=== PATIENT | female | born 1985 | race Caucasian/White ===

== ENCOUNTER 2020-12-13 06:22 | Emergency (ER) | payer OTHER ==
[~2020-12-13] VITALS: Ht 162.6 cm; Wt 65.8 kg
[~2020-12-13 06:22] MED LIST: ACEASPCAF PO; DIAZ5 PO; IBUP800 PO; NAPR500 PO; OXYACE5T PO; SLOW RELEASE47.5 MG; Verotin-Gr Cap1 EACH PO
== END 2020-12-13 06:51 | disposition home or self-care (01) ==
LOC: ER 06:22
DX: T19.2XXA Foreign body in vulva and vagina, initial encounter (principal)
CPT/HCPCS: 99282-25